=== PATIENT | female | born 1940 | race Caucasian/White ===

== ENCOUNTER → 2018-06-06 | Outpatient (REF) | payer MEDICARE ==
[~2018-06-06] VITALS: Ht 167.6 cm; Wt 86.2 kg
[~2018-06-06] MED LIST: ACETAMIN500 M2 PO; ASPIRIN EC81 MG PO; CARAFATE1 GM PO; CLARITHROMYC500 MG PO; FLAGYL500 MG PO; FLONASE NASAL50 MCG; LOSARTAN POT25 MG PO; OMEPRAZOLE20 M1 PO; OMEPRAZOLE40 MG PO; PRILOSEC20 MG PO; PROTONIX40 M2 PO; SERTRALINE50 MG PO; SIMVASTATIN40 MG PO; SYNTHROID100 MCG PO; TRAZODONE50 MG PO; VALACYCLOVIR HCL1 GM PO; ZITHROMAX500 MG PO
[2018-06-06 13:39] VITALS: BP 185/95
== END | disposition home or self-care (01) ==
LOC: ORM 09:30 → PO 09:35
PROVIDERS: ATTEND Surgery
DX: Z01.818 Encounter for other preprocedural examination (principal); K21.9 Gastro-esophageal reflux disease without esophagitis; K59.00 Constipation, unspecified; E03.9 Hypothyroidism, unspecified; F33.8 Other recurrent depressive disorders; F41.8 Other specified anxiety disorders; B00.9 Herpesviral infection, unspecified; M19.90 Unspecified osteoarthritis, unspecified site; E89.0 Postprocedural hypothyroidism; Z98.890 Other specified postprocedural states; Z72.89 Other problems related to lifestyle; Z97.4 Presence of external hearing-aid; Z97.2 Presence of dental prosthetic device (complete) (partial)

== ENCOUNTER → 2018-06-07 | Day surgery (SDC) | payer MEDICARE ==
[~2018-06-07] VITALS: Ht 167.6 cm; Wt 86.2 kg
[2018-06-07 12:36] VITALS: BP 132/65
== END | disposition home or self-care (01) ==
LOC: ENDO 09:24 → ORM 12:45 → ENDO 12:45
PROVIDERS: ATTEND Surgery
PROC: 0DB78ZX Excision of Stomach, Pylorus, Via Natural or Artificial Opening Endoscopic, Diagnostic (ICD-10-PCS; principal; 2018-06-07)
PROC: 0DJD8ZZ Inspection of Lower Intestinal Tract, Via Natural or Artificial Opening Endoscopic (ICD-10-PCS; 2018-06-07)
DX: K29.50 Unspecified chronic gastritis without bleeding (principal); K59.00 Constipation, unspecified; K57.30 Diverticulosis of large intestine without perforation or abscess without bleeding; I10 Essential (primary) hypertension; K64.4 Residual hemorrhoidal skin tags

== ENCOUNTER → 2018-06-13 | Outpatient (REF) | payer MEDICARE ==
[2018-06-13 09:44] LABS: HEMATOCRIT 39.2 % (37.0-47.0); HEMOGLOBIN 12.8 g/dl (12.0-16.0); MEAN CELL VOLUME 96.6 fL CALC (80.0-100.0); MEAN CORPUSCULAR HGB 31.5 pG CALC (26.0-32.0); MEAN CORPUSCULAR HGB CONC 32.7 g/L CALC (32.0-36.0); RED BLOOD COUNT 4.06 mill/uL (4.20-5.60); RED CELL DISTRI WIDTH 12.2 % (11.5-15.5)
[2018-06-13 10:10] LABS: ALBUMIN 3.8 g/dL (3.2-5.0); BILIRUBIN, TOTAL 0.5 mg/dL (0.0-1.4); CREATININE 1.1 mg/dL (0.5-1.0); POTASSIUM 4.4 mmol/l (3.5-5.1); TOTAL PROTEIN 6.2 g/dL (6.3-8.2)
[2018-06-13 10:40] LABS: TSH, 3RD GENERATION 0.42 uIU/mL (0.47 - 4.68)
== END | disposition home or self-care (01) ==
LOC: LAB 09:05
PROVIDERS: ATTEND Internal Medicine
DX: E03.4 Atrophy of thyroid (acquired) (principal); I10 Essential (primary) hypertension

== ENCOUNTER 2020-05-10 23:43 | Emergency (ER) | payer MEDICARE ==
[~2020-05-10] VITALS: Ht 167.6 cm; Wt 80.5 kg
[2020-05-11 00:19] LABS: HEMATOCRIT 38.8 % (37.0-47.0); HEMOGLOBIN 12.6 g/dl (12.0-16.0); IMMATURE GRANULOCYTES 0.4 % (0.0-5.0); MEAN CELL VOLUME 94.6 fL CALC (80.0-100.0); MEAN CORPUSCULAR HGB 30.7 pG CALC (26.0-32.0); MEAN CORPUSCULAR HGB CONC 32.5 g/dL CAL (32.0-36.0); NEUT# 6.51 thou/uL (2.00-7.15); RED BLOOD COUNT 4.1 mill/uL (4.20-5.60); RED CELL DISTRI WIDTH 12.7 % (11.5-15.5)
[2020-05-11 00:37] LABS: ALBUMIN 4.3 g/dL (3.2-5.0); BILIRUBIN, TOTAL 0.4 mg/dL (0.0-1.4); CREATININE 1.1 mg/dL (0.5-1.0); TOTAL PROTEIN 7.4 g/dL (6.3-8.2)
[2020-05-11 00:38] LABS: POTASSIUM 3.9 mmol/l (3.5-5.1)
[2020-05-11 01:29] LABS: URINE BILIRUBIN - DIPSTICK NEGATIVE (NEGATIVE); URINE BLOOD DIPSTICK SMALL (NEGATIVE); URINE COLOR YELLOW; URINE GLUCOSE - DIPSTICK NEGATIVE (NEGATIVE); URINE KETONE NEGATIVE (NEGATIVE); URINE NITRITE - DIPSTICK NEGATIVE (Negative); URINE PROTEIN - DIPSTICK NEGATIVE (NEG-TRACE); URINE UROBILINOGEN - DIPSTICK 0.2 E.U./dL (0.2)
[2020-05-11 01:40] LABS: URINE LEUK ESTERASE NEGATIVE (NEGATIVE)
[2020-05-11 01:46] LABS: URINE EPITHELIAL CELLS FEW EPI/hpf (0-FEW)
[2020-05-11 01:47] LABS: URINE BACTERIA MODERATE hpf
[2020-05-11 03:30] VITALS: BP 158/76
== END 2020-05-11 03:30 | disposition home or self-care (01) ==
LOC: ED 23:43
PROVIDERS: Emergency Medicine
DX: R10.30 Lower abdominal pain, unspecified (principal); K57.30 Diverticulosis of large intestine without perforation or abscess without bleeding; I10 Essential (primary) hypertension; F41.9 Anxiety disorder, unspecified; F32.9 Major depressive disorder, single episode, unspecified; Z20.822 Contact with and (suspected) exposure to COVID-19
CPT/HCPCS: Q9967

== ENCOUNTER 2022-02-20 10:07 | Emergency (ER) | payer MEDICARE ==
[~2022-02-20] VITALS: Ht 167.6 cm; Wt 81.6 kg
[2022-02-20] VITALS (14 sets, daily range): BP systolic 102–189; BP diastolic 60–96
[2022-02-20 10:49] LABS: HEMATOCRIT 36.4 % (37.0-47.0); HEMOGLOBIN 11.8 g/dl (12.0-16.0); IMMATURE GRANULOCYTES 0.2 % (0.0-5.0); MEAN CELL VOLUME 97.6 fL CALC (80.0-100.0); MEAN CORPUSCULAR HGB 31.6 pG CALC (26.0-32.0); MEAN CORPUSCULAR HGB CONC 32.4 g/dL CAL (32.0-36.0); NEUT# 3.01 thou/uL (2.00-7.15); RED BLOOD COUNT 3.73 mill/uL (4.20-5.60); RED CELL DISTRI WIDTH 12.5 % (11.5-15.5)
[2022-02-20 11:01] LABS: ALBUMIN 3.9 g/dL (3.2-5.0); ALKALINE PHOSPHATASE 81 u/l (38-126); ANION GAP 12 (6-22 (CALC)); BILIRUBIN, TOTAL 0.4 mg/dL (0.0-1.4); BUN 22 mg/dL (8-23); BUN/CREATININE RATIO 19 (12-20 (CALC)); CARBON DIOXIDE 28 mmol/l (22-30); CHLORIDE 102 mmol/l (95-108); CREATININE 1.1 mg/dL (0.5-1.0); GFR FOR AFR.AMER. 57 ML/MIN (>=60 (CALC)); GFR OTHER RACES 47 ML/MIN (>=60 (CALC)); POTASSIUM 4.7 mmol/l (3.5-5.1); SGOT/AST 32 u/l (9-36); SODIUM 136 mmol/l (137-146); TOTAL PROTEIN 6.8 g/dL (6.3-8.2)
[2022-02-20] MEDS ORDERED: FLEXERIL5 M1 PO (15:09)
[2022-02-21] MEDS ORDERED: FLEXERIL5 M1 PO (10:58)
== END 2022-02-20 15:45 | disposition home or self-care (01) ==
LOC: ED 10:07
PROVIDERS: Family Medicine
DX: R07.9 Chest pain, unspecified (principal); I10 Essential (primary) hypertension; F32.A Depression, unspecified